=== PATIENT | male | born 2000 | race Caucasian/White ===

== ENCOUNTER → 2024-02-26 08:51 | Outpatient (REF) | payer BC, SELFPAY | LOC: RAD 08:51 | PROVIDERS: ATTENDING PHYSICIAN Family Medicine; FAMILY PHYSICIAN Physician Assistant Medical | DX: S89.91XA Unspecified injury of right lower leg, initial encounter (principal) | CPT/HCPCS: 73564 ==

== ENCOUNTER → 2024-03-21 18:21 | Outpatient (REF) | payer BC, SELFPAY | LOC: PAVMRI 18:21 | PROVIDERS: ATTENDING PHYSICIAN Family Medicine | DX: S89.91XA Unspecified injury of right lower leg, initial encounter (principal) | CPT/HCPCS: 73721 ==